=== PATIENT | female | born 1980 | race Caucasian/White ===

== ENCOUNTER → 2018-08-17 13:06 | Outpatient (CLI) | payer MEDICAID, SELFPAY ==
[2018-08-17 13:58] LABS: hCG Titer Quant., Serum < 1 mIU/mL (<9 non-preg)
--- OUTSIDE RECORDS SUMMARY | 2018-11-19 03:57 | XMS RPT_ITS ---
:1980 Author Organization OH[facility] Care Team Providers Name Role Phone VALARIE GRISSOM ([employer]) Attending Unavailable LAMAR SEPULVEDA Referring Unavailable LAMAR SEPULEVDA Attending Unavailable LAMAR SEPULVEDA Referring Unavailable LAMAR SEPULVEDA Referring Unavailable Clare Cruz Attending Unavailable Clare Cruz Referring Unavailable Coco, Lamar Primary Care Unavailable Clare Cruz Attending Unavailable DOCTOR, OUT OF TOWN Referring Unavailable Clare Cruz Attending Unavailable DOCTOR, OUT OF TOWN Referring Unavailable PROBLEMS PROBLEMS DATE TYPE CONDITION / CODE ATTENDING STATUS SOURCE 12/05/2015 Active Hypothyroidism, NA Active [facility] unspecified / Main [place] E03.9(ICD-10) Repository PROCEDURES PROCEDURES No Procedure Records FoundRESULTS RESULTS HABILITATION TRAINING SPECIALIST OFFICE VISIT Observed: 09/21/2018 Status: F Source: C[place]EC[place] REPORT 2:53 PM [facility] REPOSITORY [facility]'s [address] [place] [address] OFFICE VISIT Date of Service: 09/21/18 MR#: [id number] Acct: [id number] Name: LYNNE SEPULVEDA Rep #: [id number] : 1980 Provider: Clare Cruz MD Age/Sex: 37/F Location: [facility] Status: Signed Intake Vital Signs09/21/18 Body Mass Index (BMI) 20.7 09/21/18 Height 5 ft 7.5 in 09/21/18 Weight: 134 lb 09/21/18 Body Mass Index (BMI) 20.7 09/21/18 Blood Pressure 120/70 Intake Visit Reasons: Discuss surgery options Chief Complaint: surgical consult High Speed Printer Operator Required: No Is patient in pain?: No Allergies Sulfa (Sulfonamide Antibiotics) Allergy (Mild, Verified 09/21/18 11:55) unknown Medications levothyroxine 100 mcg tablet 100 mcg PO DAILY 07/07/18 [History Confirmed 09/21/18] norethindrone 1 mg-ethinyl estradiol 20 mcg (21)-iron 75 mg (7) tablet 1 tab PO DAILY #28 tab 09/21/18 [Rx Confirmed 09/21/18] Is last menstrual period known: No Post menopausal: No Patient : No : No PFSH Medical History Hypothyroidism (Acute) Genital HSV (Acute) Surgical History S/P tonsillectomy (Resolved) Family History Mother Mary's disease Social History Smoking Status: Unknown if ever smoked alcohol intake: current alcohol intake frequency: holidays/special occasions only substance use type: does not use caffeine: Yes what type of physical activity do you participate in: none seatbelt use: always do you feel safe at home: Yes additional social history: Single-Self employed HPI Discuss surgery options: Details: LYNNE SEPULVEDA is a 37 year old who presents for discussion of control. she is interested in something for control right now but will be wanting to conceive in the near future. she has had issues with estrogen and changing her thyroid levels, as well as severe mood and bleeding irregularities on progestin only. she hasn't done well on nuvaring in the past either. Pregancy History 2 Elective abortions Hx Para 2 Spontaneous abortions Past Pregnancies Del. DatName GA/WeeksOutcome Route [facility] LocaProviderFOB e ht en ia tn Unknown Valery- 2006 Unknown Jassi-20 11 ROS Const Constitutional: Denies poor appetite, headache(s), fever(s), increased appetite, weight gain, weight loss or fatigue ENT ENT: Denies dry mouth GI GI: Reports as per HPI; denies vomiting, nausea, abdominal pain or constipation : Reports as per HPI; denies difficulty urinating, blood in urine, pelvic pain, urinary frequency, urinary incontinence, urinary hesitancy, urinary urgency, vaginal discharge, vaginal dryness, vaginal odor, vaginal itching, other, painful urination or nipple discharge Skin Skin/Breast: Denies hair loss, change in hair, dry skin, breast pain, breast skin changes, breast lump or nipple discharge Exam Const General: cooperative, healthy appearing, comfortable, no acute distress, well developed Nutritional Appearance: average body habitus Orientation: alert HENMI Head: normal to inspection, normocephalic Ears: hearing grossly normal bilaterally, external ears normal Nose: external nose normal, nares normal Face and sinus: normal facial exam Neck Neck: normal visual inspection, trachea midline, no lymphadenopathy Thyroid: thyroid normal Resp Effort AND Inspection: normal respiratory effort Musc Other: gross motor intact no deficits, full bilateral strength Skin General: no rashes or lesions noted Neuro Motor: muscle tone normal throughout Assessment AND Plan Problems 1. Encounter for surveillance of contraceptive pills Z30.41 2. Side effect of drug T88.7XXA Plan discussed options plan lo loestrin and if persistent side effects recommend nexplanon, iud, or condoms. Medications New: norethindrone-e.estradiol-iron 1 mg-20 mcg (21)/75 mg (7) (Lo1 tab PO DAILY 28 tabs 12RF estrin Fe 09/20 (28-Day)) Coding Level of Care Code Off vis,est,level 4 Diagnoses Encounter for surveillance of contraceptive pills Z30.41 Contraceptive encounter type: surveillance Contraceptive type: pill Side effect of drug T88.7XXA 09/21/18 1453 <Electronically signed by Clare Cruz MD> Date Clare Cruz MD Cosigner Signature: Date (if applicable) CC: HCG TITER QUANT., Collected: 08/17/2018 Status: F Source: [place] SERUM 1:24 PM [facility] REPOSITORY TYPE CODE TESTS RESULT OUT OF RANGE REFERENCE UNITS LAB L700.8000 <9 non-preg mIU/mL Normal HCG < 1 QUANT. Performed By: #### L700.8000 #### [facility] [address] [place], [address] PROGRESS Observed: 08/06/2018 Status: COMPLETED Source: [place] 9:53 AM [facility] [place] REPOSITORY HNO ID: [id number] Author: Valarie Grissom Service: (none) Author Type: Nurse Practitioner Type: Progress Notes Filed: 08/06/2018 10:17 AM Note Text: 37 year old female with c/o URI sx over the last several weeks. This most recent episode started last . Refers that she was sick about 5 weeks ago, as well. In between those episodes, had a period where she was completely knocked out. Refers about a week and a half ago, took plan B. Took the plan B within 24 hours of intercourse. Then started control. Didn't agree, hormonally, with thyroid issues. So was also having headaches and breast tenderness from that. Sore throat: Yes -- from drainage and up high in throat. Runny/stuffy nose: Yes. Postnasal drip: Yes. Throat clearing: Yes. Sinus pain/ pressure: Yes. Teeth pain: No. Headache Yes - -thinks more control/hormones. Body aches Yes -- attributes to thyroid Ear pain: No. But feels like equilibrium is off. Cough: No. Production: n/a. Fever: No. Some chills but relates to hormonal/cycle/thyroid. Hx asthma Yes. Hx pneumonia Yes. Smoker: No. OTC meds tried: tylenol. ACTIVE PROBLEM LIST Generalized Anxiety Disorder Anemia, Antepartum(878.71) Premature Atrial Beats Palpitations Cervicalgia Acquired Hypothyroidism Current Outpatient Prescriptions: SYNTHROID 100 mcg tablet TAKE 1 AND 1/2 TABLETS BY MOUTH ON FRIDAY AND 1 TABLET ALL OTHER DAYS Disp: 32 tablet Rfl: 4 escitalopram oxalate (LEXAPRO) 10 mg tablet Take 1 tablet by mouth once daily. Disp: 30 tablet Rfl: 1 nystatin (MYCOSTATIN) cream Apply 1 application to affected area twice daily. Disp: 45 g Rfl: 0 VENTOLIN HFA 90 mcg/actuation inhaler INHALE 2 PUFFS INSTRUCTED EVERY 4 HOURS NEEDED. Disp: 18 Inhaler Rfl: 0 acetaminophen(TYLENOL 325 MG TAB) as necessary Disp: Rfl: 0 No current facility-administered medications for this visit. OBJECTIVE: BP 110/64 (BP Site: Right Arm, BP Position: Sitting, BP Cuff Size: Regular Adult) Pulse 94 Temp 36.7 ?C (98 ?F) (Right Tympanic) Resp 14 Wt 60.3 kg (133 lb) SpO2 100% BMI 20.52 kg/m? General Appearance: Well appearing, alert, in no acute distress, well-hydrated, well nourished.. Skin: Skin color, texture, turgor normal, no suspicious rashes or lesions. Head: Normocephalic, no masses, lesions, tenderness or abnormalities. Eyes: Anicteric sclera. Pupils are equally round and reactive to light. Extraocular movements are intact. . Ears: External ears normal, canals clear, Normal TMs bilaterally. Nose/Sinuses: Nares normal, septum midline, mucosa normal, no drainage or sinus tenderness. Oropharynx: Lips, mucosa, and tongue normal, teeth and gums normal, oropharynx normal. Neck: Supple, no adenopathy Lungs: lungs clear to auscultation. No wheezing, rhonchi, rales. Heart: RRR without murmur, gallop, or rubs. No ectopy. Neurologic: Gait normal. ASSESSMENT/PLAN: 1. Acute non-recurrent sinusitis, unspecified location - ICD9: 461.9, ICD10: J01.90 (primary diagnosis) - Will begin treatment with Amoxicillin for 10 days - The patient should also be given OTC decongestants prn and warm salt water gargles, throat lozenges and/or OTC throat spray as needed for the first 5-7 days of treatment. - Supportive care with plenty of fluids, rest, and analgesia prn. - AMOXICILLIN 875 MG TABLET 2. Unprotected sexual intercourse - ICD9: V69.2, ICD10: Z72.51 Took plan B within 24 hours of unprotected intercourse. Encouraged to follow-up with a test in a week. Discussed treatment plan and patient voices understanding. Patient's questions answered appropriately. Medications and potential side effects were discussed and patient voices understanding. Return to the office as scheduled or as needed for worsening/no improvement. Valarie Grissom APRN.MAKI RODRÍGUEZOV Observed: 08/06/2018 Status: COMPLETED Source: [place] 9:40 AM [facility] REPOSITORY Office Visit (FAMPWS) LYNNE SEPULVEDA ([id number]) 1980 F Date Time Provider Department 08/06/18 9:40 AM VALARIE GRISSOM ([facility]) FAMPWS During your visit today, we recorded the following information about you: Temperature Pulse Respiration Blood pressure 98 degrees 94/minute 14/minute 110/64 Weight 60.3 kg Valarie Grissom APRN.MAKI 08/06/2018 10:17 AM Signed 37 year old female with c/o URI sx over the last several weeks. This most recent episode started last . Refers that she was sick about 5 weeks ago, as well. In between those episodes, had a period where she was completely knocked out. Refers about a week and a half ago, took plan B. Took the plan B within 24 hours of intercourse. Then started control. Didn't agree, hormonally, with thyroid issues. So was also having headaches and breast tenderness from that. Sore throat: Yes -- from drainage and up high in throat. Runny/stuffy nose: Yes. Postnasal drip: Yes. Throat clearing: Yes. Sinus pain/ pressure: Yes. Teeth pain: No. Headache Yes - -thinks more control/hormones. Body aches Yes -- attributes to thyroid Ear pain: No. But feels like equilibrium is off. Cough: No. Production: n/a. Fever: No. Some chills but relates to hormonal/cycle/thyroid. Hx asthma Yes. Hx pneumonia Yes. Smoker: No. OTC meds tried: tylenol. ACTIVE PROBLEM LIST Generalized Anxiety Disorder Anemia, Antepartum(588.) Premature Atrial Beats Palpitations Cervicalgia Acquired Hypothyroidism Current Outpatient Prescriptions: SYNTHROID 100 mcg tablet TAKE 1 AND 1/2 TABLETS BY MOUTH ON FRIDAY AND 1 TABLET ALL OTHER DAYS Disp: 32 tablet Rfl: 4 escitalopram oxalate (LEXAPRO) 10 mg tablet Take 1 tablet by mouth once daily. Disp: 30 tablet Rfl: 1 nystatin (MYCOSTATIN) cream Apply 1 application to affected area twice daily. Disp: 45 g Rfl: 0 VENTOLIN HFA 90 mcg/actuation inhaler INHALE 2 PUFFS INSTRUCTED EVERY 4 HOURS NEEDED. Disp: 18 Inhaler Rfl: 0 acetaminophen(TYLENOL 325 MG TAB) as necessary Disp: Rfl: 0 No current facility-administered medications for this visit. OBJECTIVE: BP 110/64 (BP Site: Right Arm, BP Position: Sitting, BP Cuff Size: Regular Adult) Pulse 94 Temp 36.7 ?C (98 ?F) (Right Tympanic) Resp 14 Wt 60.3 kg (133 lb) SpO2 100% BMI 20.52 kg/m? General Appearance: Well appearing, alert, in no acute distress, well-hydrated, well nourished.. Skin: Skin color, texture, turgor normal, no suspicious rashes or lesions. Head: Normocephalic, no masses, lesions, tenderness or abnormalities. Eyes: Anicteric sclera. Pupils are equally round and reactive to light. Extraocular movements are intact. . Ears: External ears normal, canals clear, Normal TMs bilaterally. Nose/Sinuses: Nares normal, septum midline, mucosa normal, no drainage or sinus tenderness. Oropharynx: Lips, mucosa, and tongue normal, teeth and gums normal, oropharynx normal. Neck: Supple, no adenopathy Lungs: lungs clear to auscultation. No wheezing, rhonchi, rales. Heart: RRR without murmur, gallop, or rubs. No ectopy. Neurologic: Gait normal. ASSESSMENT/PLAN: 1. Acute non-recurrent sinusitis, unspecified location - ICD9: 461.9, ICD10: J01.90 (primary diagnosis) - Will begin treatment with Amoxicillin for 10 days - The patient should also be given OTC decongestants prn and warm salt water gargles, throat lozenges and/or OTC throat spray as needed for the first 5-7 days of treatment. - Supportive care with plenty of fluids, rest, and analgesia prn. - AMOXICILLIN 875 MG TABLET 2. Unprotected sexual intercourse - ICD9: V69.2, ICD10: Z72.51 Took plan B within 24 hours of unprotected intercourse. Encouraged to follow-up with a test in a week. Discussed treatment plan and patient voices understanding. Patient's questions answered appropriately. Medications and potential side effects were discussed and patient voices understanding. Return to the office as scheduled or as needed for worsening/no improvement. Valarie Grissom APRN.MAKI Grissom APRN.CNP 08/06/2018 10:10 AM Signed Get plenty of rest. Force fluids daily with water and juices. Nasal saline spray may help to keep nose open and moist: 2- 3 squirts each side every few hours. This also help to rinse out virus and bacteria causing infection. Cool mist humidifier in room during sleep. May use OTC Tylenol or Ibuprofen as direct for discomfort. For sore throat, warm salt water gargles, Chlorseptic spray, lozenges or other OTC sore throat remedies may help. Decongestants such as plain Sudafed or with expectorant such as Mucinex D may help with nasal stuffiness or facial and sinus pressure. Generics are fine. These are over the counter but require an adult signature. Oxymetolazine nasal decongestants (Afrin, Dristan, Hans's) may also help (in place of oral decongestants) but should not be used longer than 48-72 hours due to potential rebound congestion. If cough keeps you awake at night, try OTC remedies first, such as Nyquil, Delsym, Hans's 44 or Mucinex DM. If this doesn't help you sleep, call the office for a prescription. Be careful if you are combining cough and cold medications that you aren't doubling the medicines. If you aren't sure: ask the pharmacist for help. Cough or sneeze into your sleeve to prevent spread of infected secretions. Wash your hands frequently. Try not to cough or sneeze on surfaces others might touch. If symptoms fail to improve in 5-7 days, fever > 100.5F, general worsening, or other concerning symptoms, return to [facility] or Lamar Sepulveda MD. Referring Provider: SELF [200] Allergies As of Date: 08/06/2018 Noted Allergy Reaction ALEVE (NAPROXEN SODIUM) 06/09/2013 14 - Other: See Comments Comments: Makes brain feel off kilter CATS 04/11/2005 Environmental [Other] 05/03/2008 INFLUENZA VIRUS VACCINES 07/09/2017 12 - Shortness of Breath SULFA (SULFONAMIDE ANTIBIOTICS) 04/11/2005 5 - Intolerance Comments: CHILD Date Reviewed: 08/06/2018 Reviewed by: [facility] Fellow - Fully Assessed Reason for Visit: Head Congestion [234] Cmt: X 1 week Primary Visit Diagnosis:Acute non-recurrent sinusitis, unspecified location [J01.90] Other Visit Diagnosis:Unprotected sexual intercourse [Z72.51] Order(s):amoxicillin (AMOXIL) 875 mg tabletTake 1 tablet by mouth twice daily for 10 days.Disp: 20 tabletRfl: 0 Prescriptions as of 08/06/2018 Sig: SYNTHROID 100 MCG TABLET TAKE 1 AND 1/2 TABLETS BY MARIA TERESA* ESCITALOPRAM 10 MG TABLET Take 1 tablet by mouth once d* NYSTATIN 100,000 UNIT/GRAM TO* Apply 1 application to affect* VENTOLIN HFA 90 MCG/ACTUATION* INHALE 2 PUFFS INSTRUCTED * TYLENOL 325 MG TABLET as necessary AMOXICILLIN 875 MG TABLET Take 1 tablet by mouth twice * Problem List As Of Date 08/06/2018 Noted Resolved Enlargement of lymph nodes [R59.9] INVALID FOR*12/23/2013 Hypothyroidism [E03.9] INVALID FOR*12/05/2015 More... Loss of weight [R63.4] INVALID FOR*12/23/2013 Other malaise and fatigue [R53.81, R53.83] INVALID FOR*12/23/2013 Dizziness [R42] INVALID FOR*12/23/2013 Neck pain [M54.2] INVALID FOR*12/23/2013 Generalized Anxiety Disorder [F41.1] INVALID FOR* Anemia, antepartum [O99.019] INVALID FOR* Supervision of other normal [Z34.80] INVALID FOR*10/09/2012 Premature atrial beats [I49.1] INVALID FOR* Palpitations [R00.2] INVALID FOR* Cervicalgia [M54.2] INVALID FOR* Acquired hypothyroidism [E03.9] INVALID FOR* Other instructions from your clinician: Get plenty of rest. Force fluids daily with water and juices. Nasal saline spray may help to keep nose open and moist: 2-3 squirts each side every few hours. This also help to rinse out virus and bacteria causing infection. Cool mist humidifier in room during sleep. May use OTC Tylenol or Ibuprofen as direct for discomfort. For sore throat, warm salt water gargles, Chlorseptic spray, lozenges or other OTC sore throat remedies may help. Decongestants such as plain Sudafed or with expectorant such as Mucinex D may help with nasal stuffiness or facial and sinus pressure. Generics are fine. These are over the counter but require an adult signature. Oxymetolazine nasal decongestants (Afrin, Dristan, Hans's) may also help (in place of oral decongestants) but should not be used longer than 48-72 hours due to potential rebound congestion. If cough keeps you awake at night, try OTC remedies first, such as Nyquil, Delsym, Hans's 44 or Mucinex DM. If this doesn't help you sleep, call the office for a prescription. Be careful if you are combining cough and cold medications that you aren't doubling the medicines. If you aren't sure: ask the pharmacist for help. Cough or sneeze into your sleeve to prevent spread of infected secretions. Wash your hands frequently. Try not to cough or sneeze on surfaces others might touch. If symptoms fail to improve in 5-7 days, fever > 100.5F, general worsening, or other concerning symptoms, return to [facility] or Lamar Sepulveda MD. Prescriptions ordered this encounter Disp Refills Start End AMOXICILLIN 875 MG TABLET 20 t* 0 08/06/2018 08/16/2018 Route: ORAL Sig: Take 1 tablet by mouth twice daily for 10 days. Encounter Status:Closed by VALARIE GRISSOM CNP on 08/06/18 HABILITATION TRAINING SPECIALIST OFFICE VISIT Observed: 07/07/2018 Status: F Source: [place] REPORT 1:13 PM [facility]'s [address] [place] [address] OFFICE VISIT Date of Service: 07/07/18 MR#: [id number] Acct: [id number] Name: LYNNE SEPULVEDA Rep #: [id number] : 1980 Provider: Clare Cruz MD Age/Sex: 37/F Location: [facility] Status: Signed Intake Vital Signs07/07/18 Height 5 ft 7.5 in 07/07/18 Weight: 134 lb 07/07/18 Body Mass Index (BMI) 20.7 07/07/18 Blood Pressure 112/70 Intake Visit Reasons: IRREGULAR PERIODS/EMOTIONAL High Speed Printer Operator Required: No Is patient in pain?: No Allergies Sulfa (Sulfonamide Antibiotics) Allergy (Mild, Verified 07/07/18 10:31) unknown Medications levothyroxine 100 mcg tablet 100 mcg PO DAILY 07/07/18 [History Confirmed 07/07/18] Is last menstrual period known: Yes Last Menstral Period: 06/22/18 Post menopausal: No Patient : No : No [facility] Medical History Hypothyroidism (Acute) Genital HSV (Acute) Surgical History S/P tonsillectomy (Resolved) Family History Mother Mary's disease Social History Smoking Status: Unknown if ever smoked alcohol intake: current alcohol intake frequency: holidays/special occasions only substance use type: does not use caffeine: Yes what type of physical activity do you participate in: none seatbelt use: always do you feel safe at home: Yes additional social history: Single-Self employed HPI IRREGULAR PERIODS/EMOTIONAL: Details: LYNNE SEPULVEDA is a 37 year old who presents for discussion about HSV. she is wanting to be sexually active more and wants to discuss std risks and prevention. she is wanting tested. Female Reproductive History Last Menstral Period: 06/22/18 Cycle Length: 21-35 Control Method: condoms Questions: Metorrhagia: No, Sexually active: Yes, Dyspareunia: No, PCB: No Pregancy History 2 Elective abortions Hx Para 2 Spontaneous abortions Past Pregnancies Del. DatName GA/WeeksOutcome [facility] LocaProviderFOB e ht en ia tn Unknown Valery- 2005 Unknown Jassi-20 11 ROS Const Constitutional: Denies poor appetite, headache(s), fever(s), increased appetite, weight gain, weight loss or fatigue Cardio Card: Denies chest pain Resp Resp: Denies dyspnea or cough GI GI: Reports as per HPI; denies vomiting, nausea, abdominal pain or constipation : Reports as per HPI; denies urinary urgency, vaginal discharge, urinary frequency, vaginal itching, vaginal odor, vaginal dryness, urinary incontinence, urinary hesitancy, difficulty urinating, painful urination or nipple discharge Skin Skin/Breast: Denies breast lump, breast pain, breast skin changes, nipple discharge or change in hair Exam Const General: cooperative, healthy appearing, comfortable, no acute distress, well developed Nutritional Appearance: average body habitus Orientation: alert HENMT Head: normal to inspection, normocephalic Neck Neck: normal visual inspection, trachea midline Thyroid: thyroid normal Resp Effort AND Inspection: normal respiratory effort GI Inspection: normal to inspection, non-distended Palpation: soft, no hepatosplenomegaly General: bladder normal to palpation External Female Exam: normal external appearance, normal appearance of the urethra Urethra: normal appearance of the urethra, normal palpation, no discharge Speculum Exam - Vagina: normal appearance of the vagina, normal vaginal discharge Speculum Exam - Cervix: normal appearance of the cervix, nontender Bimanual Exam- Vagina AND Uterus: bladder normal to palpation, No cervical tenderness, normal bimanual exam, uterine size normal, uterine shape normal, uterine mobility normal, uterine consistency normal, normal cervical palpation, uterus non-tender Bimanual Exam- Adnexa, other: normal adnexae, adnexae mobile, no adnexal masses, pelvic support normal Pelvic Support: normal Skin General: no rashes or lesions noted Assessment AND Plan Problems 1. Screen for STD (sexually transmitted disease) Z11.3 2. Breast lesion N64.9 3. General counselling and advice on contraception Z30. Plan discussed options for control. plan on progestin only pill due to side effects of estrogen on thyroid in the past Coding Level of Care Code Off vis,est,level 3 Diagnoses Screen for STD (sexually transmitted disease) Z11.3 Breast lesion N64.9 General counselling and advice on contraception Z30.07/07/18 1313 <Electronically signed by Clare Cruz MD> Date Clare Cruz MD Cosigner Signature: Date (if applicable) CC: TSH Collected: 06/18/2018 Status: F Source: [place] 4:42 PM [facility] REPOSITORY TYPE CODE TESTS RESULT OUT OF RANGE REFERENCE UNITS LAB TSH 0.400-5.500 uU/mL TSH 2.320 Result Comment: If the patient is , TSH reference range varies by gestational period: First Trimester 0.100-2.500 uU/mL Second Trimester 0.200-3.000 uU/mL Third Trimester 0.300-3.000 uU/mL References: 1. Villatoro L, Terrence M, José EK, et al. Management of Thyroid Dysfunction during and : An Endocrine Society Clinical Practice Guideline. J Clin Endocrinol Metab, 2012:97:2874-5869. 2. Rickey MILLER. Overview of thyroid disease in . UpToDate. 2016. Accessed on February 16, 2016. Performed By: #### TSH, FT4 #### [facility] [address] [address] FREE T4 Collected: 06/18/2018 Status: F Source: [place] 4:42 PM [facility] REPOSITORY TYPE CODE TESTS RESULT OUT OF RANGE REFERENCE UNITS LAB FT4 0.9-1.7 ng/dL Free T4 1.4 Performed By: #### TSH, FT4 #### [facility] [address] [address] PROGRESS Observed: 03/20/2018 Status: COMPLETED Source: [place] 9:50 AM [facility] REPOSITORY O ID: [id number] Author: Lamar Sepulveda Service: (none) Author Type: Physician Type: Progress Notes Filed: 03/20/2018 10:09 AM Note Text: Patient presents with: Derm Problem HPI: Patient presents today for office visit for follow up. Nursing Notes: Fely Evans LPN 03/20/2018 9:13 AM Signed Wants to discuss pain that she gets in temples jolting pain. Comes with a dizziness feeling. When happened in the past years ago had MRI and then had to see massage therapy. Wonders if related to thyroid issues? Derm problem. Area inner aspect right elbow. Had area not healing changes. Seems to be effected by the sun. Area sometimes is raised. Doesn't itch. Uses ATB and that seems to help. Gets a spot on her olecranon fossa of her right elbow. Worse when in the sun. Is somewhat better today. Comes and goes. No fever or chills. No red streaks. Has been there for a few weeks. ? Central clearing. Headaches are similar to when she had headaches evaluated in 2009. Gets occasionally lightheaded. Would get shooting pains in the side of her head. She has significant tmj. No vision changes. No speech changes. No focal numbness or weakness. No new neck pain. No head injury. Not the worst headache she has had. No thunderclap. Wants us to recheck thyroid and manage. She adjusted on her own. MEDICATIONS: Current Outpatient Prescriptions: SYNTHROID 100 mcg tablet Take 1.5 pill on friday, all other days take 1 pill per day, total 7.5 pills per week (Patient taking differently: Take 100 mcg by mouth once daily. ) escitalopram oxalate (LEXAPRO) 10 mg tablet Take 1 tablet by mouth once daily. (Patient not taking: Reported on 03/20/2018 ) VENTOLIN HFA 90 mcg/actuation inhaler INHALE 2 PUFFS INSTRUCTED EVERY 4 HOURS NEEDED. acetaminophen(TYLENOL 325 MG TAB) as necessary No current facility-administered medications for this visit. ALLERGIES: ALLERGIES Allergen Reactions - Aleve [Naproxen Sod* Other: See Comments Makes brain feel off kilter - Cats - Environmental [Othe* - Influenza Virus Vac* Shortness of Breath - Sulfa (Sulfonamide * Intolerance CHILD PAST MEDICAL HISTORY Diagnosis Date - Closed fracture of unspecified part of humerus LT HAND - Hypothyroid - Injury, other and unspecified, unspecified site Trauma, unspecified - Unspecified closed fracture of ankle LT FOOT -2ND GRADE PAST SURGICAL HISTORY Procedure Laterality Date - REMOVAL OF TONSILS,<14 Y/O 1988 Tonsillectomy - SKIN BX, 1 LESION 1995 Skin biopsy-MOLE REMOVE ON R THIGH FAMILY HISTORY Problem Relation Age of Onset - Emphysema Maternal Grandmother - vitamin k deficiency [Other] [OTHER] Father Social History Marital status: Single Spouse name: Years of education: 12 Number of children: 1 Occupational History Occupation Employer Comment [employer]* SELF EMPLOYED Social History Main Topics Smoking status: Former Smoker Packs/day: 0.00 Years: 2.00 Quit date: 02/28/2005 Smokeless tobacco: Never Used Alcohol use: Yes Comment: Rarely Drug use: No Sexual activity: Yes Partners with: Male control/protection: Condom Reviewed current medications, allergies, past medical history, surgical history, family history and social history today. REVIEW OF SYSTEMS All other reviewed and negative other than HPI. HEALTH MAINTENANCE: Reviewed health maintenance issues today and recommended the following in detail. HPV EVERY 5 YEARS due on 2012 PAP EVERY 5 YEARS due on 10/09/2017 VITALS: BP 110/72 Pulse 60 Resp 16 Last 4 Encounter Wt Readings: Date: Wt: 09/08/2017 62.6 kg (138 lb) 07/01/2017 62.1 kg (137 lb) 03/08/2017 61.7 kg (136 lb) 01/16/2017 59.4 kg (131 lb) PHYSICAL EXAMINATION: General appearance: Well appearing, alert, in no acute distress, well-hydrated, well nourished. Skin: mild red rash in olecranon fossa. Some central clearing. Head: Normocephalic, no masses, lesions, tenderness or abnormalities Eyes: Anicteric sclera. Pupils are equally round and reactive to light. Extraocular movements are intact. Ears: External ears normal, canals clear Oropharynx: Lips, mucosa, and tongue normal, teeth and gums normal, oropharynx normal and some crepitus over tmj joint Lungs: Lungs clear to auscultation. No wheezing, rhonchi, rales Heart: RRR without murmur, gallop, or rubs. No ectopy Abdomen: Normal abdominal exam, Abdomen soft, non-tender. Bowel sounds normal. No masses, organomegaly Extremities: No deformities, edema, skin discoloration, clubbing or cyanosis. Good capillary refill. ASSESSMENT/PLAN: 1. Dermatitis - ICD9: 692.9, ICD10: L30.9 (primary diagnosis) - discussed skin care of rash - follow up if symptoms persist or worsen. - CLOTRIMAZOLE-BETAMETHASONE 1 %-0.05 % LOTION 2. Acquired hypothyroidism - ICD9: 244.9, ICD10: E03.9 - Instructed patient on importance of taking on an empty stomach either first thing in the morning or at bedtime. - TSH BLD - SYNTHROID 100 MCG TABLET 3. TMJ dysfunction - ICD9: 524.60, ICD10: M26.609 - see dentist 4. Headache, unspecified headache type - ICD9: 784.0, ICD10: R51 - as above. Call if worsens 5. Anxiety. Discussed retrying lexapro. Lamar Sepulveda MD - call with update in a month CNOV Observed: 03/20/2018 Status: COMPLETED Source: [place] 9:00 AM [facility] REPOSITORY Office Visit (FAMPWS) LYNNE SEPULVEDA ([id number]) 1980 F Date Time Provider Department 03/20/18 9:00 AM [facility] During your visit today, we recorded the following information about you: Pulse Respiration Blood pressure 60/minute 16/minute 110/72 Fely Nathan MCCOY 03/20/2018 9:13 AM Signed Wants to discuss pain that she gets in temples jolting pain. Comes with a dizziness feeling. When happened in the past years ago had MRI and then had to see massage therapy. Wonders if related to thyroid issues? Derm problem. Area inner aspect right elbow. Had area not healing changes. Seems to be effected by the sun. Area sometimes is raised. Doesn't itch. Uses ATB and that seems to help. Lamar Sepulveda MD 03/20/2018 10:09 AM Signed Patient presents with: Derm Problem HPI: Patient presents today for office visit for follow up. Nursing Notes: Fely Patelleonidjaya DARIUS 03/20/2018 9:13 AM Signed Wants to discuss pain that she gets in temples jolting pain. Comes with a dizziness feeling. When happened in the past years ago had MRI and then had to see massage therapy. Wonders if related to thyroid issues? Derm problem. Area inner aspect right elbow. Had area not healing changes. Seems to be effected by the sun. Area sometimes is raised. Doesn't itch. Uses ATB and that seems to help. Gets a spot on her olecranon fossa of her right elbow. Worse when in the sun. Is somewhat better today. Comes and goes. No fever or chills. No red streaks. Has been there for a few weeks. ? Central clearing. Headaches are similar to when she had headaches evaluated in 2009. Gets occasionally lightheaded. Would get shooting pains in the side of her head. She has significant tmj. No vision changes. No speech changes. No focal numbness or weakness. No new neck pain. No head injury. Not the worst headache she has had. No thunderclap. Wants us to recheck thyroid and manage. She adjusted on her own. MEDICATIONS: Current Outpatient Prescriptions: SYNTHROID 100 mcg tablet Take 1.5 pill on friday, all other days take 1 pill per day, total 7.5 pills per week (Patient taking differently: Take 100 mcg by mouth once daily. ) escitalopram oxalate (LEXAPRO) 10 mg tablet Take 1 tablet by mouth once daily. (Patient not taking: Reported on 03/20/2018 ) VENTOLIN HFA 90 mcg/actuation inhaler INHALE 2 PUFFS INSTRUCTED EVERY 4 HOURS NEEDED. acetaminophen(TYLENOL 325 MG TAB) as necessary No current facility-administered medications for this visit. ALLERGIES: ALLERGIES Allergen Reactions - Aleve [Naproxen Sod* Other: See Comments Makes brain feel off kilter - Cats - Environmental [Othe* - Influenza Virus Vac* Shortness of Breath - Sulfa (Sulfonamide * Intolerance CHILD PAST MEDICAL HISTORY Diagnosis Date - Closed fracture of unspecified part of humerus LT HAND - Hypothyroid - Injury, other and unspecified, unspecified site Trauma, unspecified - Unspecified closed fracture of ankle LT FOOT -2ND GRADE PAST SURGICAL HISTORY Procedure Laterality Date - REMOVAL OF TONSILS,<14 Y/O 1988 Tonsillectomy - SKIN BX, 1 LESION 1995 Skin biopsy-MOLE REMOVE ON R THIGH FAMILY HISTORY Problem Relation Age of Onset - Emphysema Maternal Grandmother - vitamin k deficiency [Other] [OTHER] Father Social History Marital status: Single Spouse name: Years of education: 12 Number of children: 1 Occupational History Occupation Employer Comment [employer]* SELF EMPLOYED Social History Main Topics Smoking status: Former Smoker Packs/day: 0.00 Years: 2.00 Quit date: 02/28/2005 Smokeless tobacco: Never Used Alcohol use: Yes Comment: Rarely Drug use: No Sexual activity: Yes Partners with: Male control/protection: Condom Reviewed current medications, allergies, past medical history, surgical history, family history and social history today. REVIEW OF SYSTEMS All other reviewed and negative other than HPI. HEALTH MAINTENANCE: Reviewed health maintenance issues today and recommended the following in detail. HPV EVERY 5 YEARS due on 2012 PAP EVERY 5 YEARS due on 10/09/2017 VITALS: BP 110/72 Pulse 60 Resp 16 Last 4 Encounter Wt Readings: Date: Wt: 09/08/2017 62.6 kg (138 lb) 07/01/2017 62.1 kg (137 lb) 03/08/2017 61.7 kg (136 lb) 01/16/2017 59.4 kg (131 lb) PHYSICAL EXAMINATION: General appearance: Well appearing, alert, in no acute distress, well-hydrated, well nourished. Skin: mild red rash in olecranon fossa. Some central clearing. Head: Normocephalic, no masses, lesions, tenderness or abnormalities Eyes: Anicteric sclera. Pupils are equally round and reactive to light. Extraocular movements are intact. Ears: External ears normal, canals clear Oropharynx: Lips, mucosa, and tongue normal, teeth and gums normal, oropharynx normal and some crepitus over tmj joint Lungs: Lungs clear to auscultation. No wheezing, rhonchi, rales Heart: RRR without murmur, gallop, or rubs. No ectopy Abdomen: Normal abdominal exam, Abdomen soft, non-tender. Bowel sounds normal. No masses, organomegaly Extremities: No deformities, edema, skin discoloration, clubbing or cyanosis. Good capillary refill. ASSESSMENT/PLAN: 1. Dermatitis - ICD9: 692.9, ICD10: L30.9 (primary diagnosis) - discussed skin care of rash - follow up if symptoms persist or worsen. - CLOTRIMAZOLE-BETAMETHASONE 1 %-0.05 % LOTION 2. Acquired hypothyroidism - ICD9: 244.9, ICD10: E03.9 - Instructed patient on importance of taking on an empty stomach either first thing in the morning or at bedtime. - TSH BLD - SYNTHROID 100 MCG TABLET 3. TMJ dysfunction - ICD9: 524.60, ICD10: M26.609 - see dentist 4. Headache, unspecified headache type - ICD9: 784.0, ICD10: R51 - as above. Call if worsens 5. Anxiety. Discussed retrying lexapro. Lamar Sepulveda MD - call with update in a month Referring Provider: SELF [[id number]] Allergies As of Date: 03/20/2018 Noted Allergy Reaction ALEVE (NAPROXEN SODIUM) 06/09/2013 14 - Other: See Comments Comments: Makes brain feel off kilter CATS 04/11/2005 Environmental [Other] 05/03/2008 INFLUENZA VIRUS VACCINES 07/09/2017 12 - Shortness of Breath SULFA (SULFONAMIDE ANTIBIOTICS) 04/11/2005 5 - Intolerance Comments: CHILD Date Reviewed: 09/08/2017 Reviewed by: Anahy Orozco LPN - Fully Assessed Reason for Visit: Derm Problem [33] Primary Visit Diagnosis:Dermatitis [L30.9] Other Visit Diagnoses:Acquired hypothyroidism [E03.9] TMJ dysfunction [M26.609] Headache, unspecified headache type [R51] Anxiety [F41.9] Order(s):clotrimazole-betamethasone (LOTRISONE) lotionApply 1 application to affected area twice daily.Disp: 30 mLRfl: 1 TSH BLD [[facility]] Order #: [id number] FUTURE SYNTHROID 100 mcg tabletTake 1 tablet by mouth once daily.Disp: Rfl: escitalopram oxalate (LEXAPRO) 10 mg tabletTake 1 tablet by mouth once daily.Disp: 30 tabletRfl: 1 Prescriptions as of 03/20/2018 Sig: SYNTHROID 100 MCG TABLET Take 1 tablet by mouth once d* CLOTRIMAZOLE-BETAMETHASONE 1 * Apply 1 application to affect* ESCITALOPRAM 10 MG TABLET Take 1 tablet by mouth once d* VENTOLIN HFA 90 MCG/ACTUATION* INHALE 2 PUFFS INSTRUCTED * TYLENOL 325 MG TABLET as necessary Problem List As Of Date 03/20/2018 Noted Resolved Enlargement of lymph nodes [R59.9] INVALID FOR*12/23/2013 Hypothyroidism [E03.9] INVALID FOR*12/05/2015 More... Loss of weight [R63.4] INVALID FOR*12/23/2013 Other malaise and fatigue [R53.81, R53.83] INVALID FOR*12/23/2013 Dizziness [R42] INVALID FOR*12/23/2013 Neck pain [M54.2] INVALID FOR*12/23/2013 Generalized Anxiety Disorder [F41.1] INVALID FOR* Anemia, antepartum [O99.019] INVALID FOR* Supervision of other normal [Z34.80] INVALID FOR*10/09/2012 Premature atrial beats [I49.1] INVALID FOR* Palpitations [R00.2] INVALID FOR* Cervicalgia [M54.2] INVALID FOR* Acquired hypothyroidism [E03.9] INVALID FOR* Visit Notes: >> Fely Evans STEM TEACHER FriMar 20, 2018 8:54 AM Status: Signed Wants to discuss pain that she gets in temples jolting pain. Comes with a dizziness feeling. When happened in the past years ago had MRI and then had to see massage therapy. Wonders if related to thyroid issues? Derm problem. Area inner aspect right elbow. Had area not healing changes. Seems to be effected by the sun. Area sometimes is raised. Doesn't itch. Uses ATB and that seems to help. Prescriptions ordered this encounter Disp Refills Start End CLOTRIMAZOLE-BETAMETHASONE 1 %-0.05 * 30 mL 1 03/20/2018 Route: TOPICAL Sig: Apply 1 application to affected area twice daily. SYNTHROID 100 MCG TABLET 03/20/2018 Class: Med Update Route: ORAL Sig: Take 1 tablet by mouth once daily. ESCITALOPRAM 10 MG TABLET 30 t* 1 03/20/2018 Route: ORAL Sig: Take 1 tablet by mouth once daily. Medications Discontinued During This Encounter SYNTHROID 100 mcg tablet 100 * 3 09/03/2017 03/20/2018 Sig: Take 1.5 pill on friday, all other days take 1 pill per day, total 7.5 pills per week Patient taking differently: Take 100 mcg by mouth once daily. Disc: Reason for discontinue is not on file. escitalopram oxalate (LEXAPRO) 10 mg* 30 t* 1 07/16/2017 03/20/2018 Route: ORAL Sig: Take 1 tablet by mouth once daily. Patient not taking: Reported on 03/20/2018 Disc: Reason for discontinue is not on file. Disposition: Return in about 1 year (around 03/20/2019). Follow-up and Disposition History Recorded Encounter Status:Closed by LAMAR SEPULVEDA MD on 03/20/18 CNPN Observed: 03/20/2018 Status: COMPLETED Source: [place] 12:00 AM [facility] REPOSITORY [facility] LYNNE SEPULVEDA ([id number]) 1980 F Date Time Provider Department 03/20/18 LAMAR SEPULVEDA [facility] During your visit today, we recorded the following information about you: Sheba Malave LPN 03/20/2018 11:45 AM Signed Patient's insurance will not cover the Lotrisone cream. It will be over $160. Asking if there is something cheaper available? Please review and advise. aLmar Sepulveda MD 03/20/2018 1:37 PM Signed New rx sent Mirta Lucero Ma 03/20/2018 2:42 PM Signed Left detailed message for patient. Mirta Malave LPN 03/20/2018 3:05 PM Signed Patient notified of the same and verbalizes understanding. Allergies As of Date: 03/20/2018 Noted Allergy Reaction ALEVE (NAPROXEN SODIUM) 06/09/2013 14 - Other: See Comments Comments: Makes brain feel off kilter CATS 04/11/2005 Environmental [Other] 05/03/2008 INFLUENZA VIRUS VACCINES 07/09/2017 12 - Shortness of Breath SULFA (SULFONAMIDE ANTIBIOTICS) 04/11/2005 5 - Intolerance Comments: CHILD Date Reviewed: 09/08/2017 Reviewed by: Anahy Orozco LPN - Fully Assessed Reason for Visit: Medication Problem [65] Order(s):nystatin (MYCOSTATIN) creamApply 1 application to affected area twice daily.Disp: 45 gRfl: 0 Prescriptions as of 03/20/2018 Sig: SYNTHROID 100 MCG TABLET Take 1 tablet by mouth once d* ESCITALOPRAM 10 MG TABLET Take 1 tablet by mouth once d* NYSTATIN 100,000 UNIT/GRAM TO* Apply 1 application to affect* VENTOLIN HFA 90 MCG/ACTUATION* INHALE 2 PUFFS INSTRUCTED * TYLENOL 325 MG TABLET as necessary Problem List As Of Date 03/20/2018 Noted Resolved Enlargement of lymph nodes [R59.9] INVALID FOR*12/23/2013 Hypothyroidism [E03.9] INVALID FOR*12/05/2015 More... Loss of weight [R63.4] INVALID FOR*12/23/2013 Other malaise and fatigue [R53.81, R53.83] INVALID FOR*12/23/2013 Dizziness [R42] INVALID FOR*12/23/2013 Neck pain [M54.2] INVALID FOR*12/23/2013 Generalized Anxiety Disorder [F41.1] INVALID FOR* Anemia, antepartum [O99.019] INVALID FOR* Supervision of other normal [Z34.80] INVALID FOR*10/09/2012 Premature atrial beats [I49.1] INVALID FOR* Palpitations [R00.2] INVALID FOR* Cervicalgia [M54.2] INVALID FOR* Acquired hypothyroidism [E03.9] INVALID FOR* Prescriptions ordered this encounter Disp Refills Start End NYSTATIN 100,000 UNIT/GRAM TOPICAL C* 45 g 0 03/20/2018 Route: TOPICAL Sig: Apply 1 application to affected area twice daily. Medications Discontinued During This Encounter clotrimazole-betamethasone (LOTRISON* 30 mL 1 03/20/2018 03/20/2018 Route: TOPICAL Sig: Apply 1 application to affected area twice daily. Disc: Reason for discontinue is not on file. Encounter Status:Closed by MIRTA LUCERO MA on 03/20/18 TSH Collected: 02/27/2018 Status: F Source: [place] 1:12 PM [facility] RE[facility] TYPE CODE TESTS RESULT OUT OF RANGE REFERENCE UNITS LAB TSH 0.400-5.500 uU/mL TSH 4.660 Result Comment: If the patient is , TSH reference range varies by gestational period: First Trimester 0.100-2.500 uU/mL Second Trimester 0.200-3.000 uU/mL Third Trimester 0.300-3.000 uU/mL References: 1. Villatoro L, Terrence M, José EK, et al. Management of Thyroid Dysfunction during and : An Endocrine Society Clinical Practice Guideline. J Clin Endocrinol Metab, 2012:97:7624-5672. 2. Rickey MILLER. Overview of thyroid disease in . UpToDa. 2015. Accessed on February 16, 2016. Performed By: #### TSH #### [facility] [address] [place] [address], [place] [address] TSH Collected: 01/06/2018 Status: F Source: [place] 9:40 AM [facility] REPOSITORY TYPE CODE TESTS RESULT OUT OF RANGE REFERENCE UNITS LAB TSH 0.400-5.500 uU/mL TSH 1.620 Result Comment: If the patient is , TSH reference range varies by gestational period: First Trimester 0.100-2.500 uU/mL Second Trimester 0.200-3.000 uU/mL Third Trimester 0.300-3.000 uU/mL References: 1. West, Terrence M, José EK, et al. Management of Thyroid Dysfunction during and : An Endocrine Society Clinical Practice Guideline. J Clin Endocrinol Metab, 2012:97:9118-0001. 2. Rickey MILLER. Overview of thyroid disease in . UpToDate. 2015. Accessed on February 16, 2016. Performed By: #### TSH #### [facility] [address] [id number] ALLERGIES ALLERGIES DATE TYPE / CODE NAME / CODE REACTION SEVERITY SOURCE Drug Sulfa Unknown [place] 9 Allergy/261123268( (Sulfonamide Community SNOMED CT) Antibiotics)/F Hospital [id number](RXNO Repository ) Drug INFLUENZA SHORTNESS OF [place] 7 Class/059637763(SN VIRUS VACCINES Clinic Main OMED CT) [place] Repository DRUG NAPROXEN OTHER: SEE C [place] 3 INGREDI/[id number]( SODIUM Clinic Main SNOMED CT) [place] Repository Miscellaneous OTHER [place] 8 Allergy/[id number]( Clinic Main SNOMED CT) [place] Repository Animal/[id number](S CATS [place] [address]) Clinic Main [place] Repository Drug SULFA INTOLERANCE [place] 5 Class/[id number](SN (SULFONAMIDE Clinic Main OMED CT) ANTIBIOTICS) [place] Repository ENCOUNTERS ENCOUNTERS ADMIT/DISCHARGE ACCOUNT ADMITTING ENCOUNTER LOCATION SOURCE NUMBER CLASS 09/21/2018/09/21/19 [id number] Ambulatory BMSBuilding:[place] [address] Repository 08/17/2018 [id number] Ambulatory [facility] ing:PAVLAB Repository 08/06/2018/08/07/20 [id number] Ambulatory [address] Repository 07/07/2018/07/07/20 [id number] Ambulatory BMSBuilding:[place] [address] Repository 06/18/2018/06/18/20 [id number] Ambulatory [address] Repository 03/20/2018/03/23/20 [id number] Ambulatory [address] Repository 02/27/2018/02/28/20 [id number] Ambulatory [address] Repository 01/06/2018/01/10/20 [id number] Ambulatory [address] Repository PAYERS PAYERS ENCOUNTER GUARANTOR PAYER SUBSCRIBER SOURCE 09/21/2018 LYNNE L Primary LYNNE L [place] [id number] Insurance:CARESOURCEP LUCASDOB: [facility] Number: [id number] [place], [place] [id number] Repository [address]Zxk: (330) Date:2018-08-04P O [phone] () [address]ATTN: [place] [address]BZ: 09/21/2018 Secondary NOT GIVENUNK [place] Insurance:SELF PAY [facility] Number: Effective Repository Date:2018-09-21 08/17/2018 LYNNE L Primary LYNNE L [place] [id number] [facility] Number: [id number] [place], [place] [id number] Repository [address]Rdy: ([phone]) Date:2018-08-17P O [phone] () [address]ATTN: [place] [address]BQ: 08/17/2018 Secondary NOT GIVENUNK [place] Insurance:SELF PAY [facility] Number: Effective Repository Date:2018-08-17 07/07/2018 LYNNE Johnson Primary LYNNE Johnson [facility] [id number] Insurance:CARESOURCEP LUCASDOB: [facility] Number: [id number] [place], [place] [id number] Repository [address]Wvn: [phone]) Date:2018-07-02P [phone] () [address]ATTN: [place] [address]ET: 07/07/2018 Secondary NOT GIVENUNK [place] Insurance:SELF PAY [facility] Number: Effective Repository Date:2018-07-07
== END ==
PROVIDERS: Family Provider Family Medicine; PCP Family Medicine; Referring Provider Obstetrics & Gynecology; Visit Provider Obstetrics & Gynecology
DX: N92.6 Irregular menstruation, unspecified (principal)
CPT/HCPCS: 36415; 84702

== ENCOUNTER → 2019-09-16 16:58 | Outpatient (CLI) | payer OTHER, SELFPAY ==
[2019-09-16 12:18] VITALS: BMI 20.7
[2019-09-16 19:35] LABS: Amphetamine Urine VISTA NEGATIVE (<1000 ng/mL); Barbiturate Urine VISTA NEGATIVE (< 200 ng/mL); Benzodiazepine Urine VISTA NEGATIVE (< 200 ng/mL); Cocaine Urine VISTA NEGATIVE (< 300 ng/mL); Ecstacy Urine VISTA NEGATIVE (< 500 ng/mL); Methadone Urine VISTA NEGATIVE (< 300 ng/mL); PCP Urine VISTA NEGATIVE (< 25 ng/mL); THC Urine VISTA NEGATIVE (< 50 ng/mL); Vista UDS pH Range 6
== END ==
PROVIDERS: Referring Provider Obstetrics & Gynecology; Visit Provider Obstetrics & Gynecology
DX: Z34.90 Encounter for supervision of normal pregnancy, unspecified, unspecified trimester (principal)
CPT/HCPCS: 80307; 87086; 87088

== ENCOUNTER → 2020-04-13 | Outpatient (CLI) | payer OTHER, SELFPAY ==
[2019-09-16 12:18] VITALS: BMI 20.7
== END | disposition home or self-care (01) ==
LOC: MTDU 10:26
PROVIDERS: Referring Provider Advanced Practice Midwife; Visit Provider Advanced Practice Midwife
DX: Z11.59 Encounter for screening for other viral diseases (principal)
CPT/HCPCS: 87635; 94799; U0003

== ENCOUNTER 2020-04-18 19:05 | Inpatient (IN) | payer OTHER, SELFPAY ==
[2019-09-16 12:18] VITALS: BMI 20.7
[2020-04-18 19:29] VITALS: BP 110/76
[2020-04-18 19:30] VITALS: PULSE 100; O2SAT 98
[2020-04-18 19:32] VITALS: TEMP 36.1
[2020-04-18] MEDS: Lactated Ringers 1,000 ML 50 ML IV (19:40)
[2020-04-18 19:56] LABS: Absolute Lymphocyte Count 1.65 X10^3/uL (0.83-4.51); Absolute Neutrophil Count 6.3 X10^3/uL (2.0-7.7); Basophil# 0.02 X10^3/uL; Basophil% 0.2 % (0-1); Eosinophil# 0.04 X10^3/uL; Eosinophils% 0.5 % (0-5); Hematocrit 32.6 % (37-47); Hemoglobin 11.1 g/dL (12.0-15.0); Lymphocyte # 1.65 X10^3/ul (4.0); Lymphocyte % 19.1 % (19-41); Mean Corpuscular Hgb 33.1 pg (27.0-32.0); Mean Corpuscular Volume 97.3 fL (81-99); Mean Platelet Vol. 10.9 fl (6.2-12.0); Monocyte# 0.53 X10^3/uL; Monocyte% 6.1 % (0-10); NRBC Flagged by Analyzer 0 % (0-5); Neutrophil # 6.34 X10^3/uL (2.7-7.7); Neutrophil % 73.5 % (47-70); Platelet Count 232 K/mm3 (150-450); RBC Distribution Width SD 45.7 fl (35.1-43.9); Red Blood Count 3.35 M/mm3 (4.2-5.4); White Blood Count 8.6 K/mm3 (4.4-11.0)
[2020-04-18 20:09] VITALS: BMI 26.8
[2020-04-18] MEDS: Oxytocin 30 units/NS 500 ml 30 UNITS/500 ML IV.SOLN IV (21:02)
[2020-04-18 21:05] VITALS: BP 103/67; PULSE 75; O2SAT 98
[2020-04-18 22:09] VITALS: BP 114/71; PULSE 75; TEMP 37.4
[2020-04-18] MEDS: Acetaminophen 325 MG Tablet PO (22:11)
[2020-04-18 23:09] VITALS: BP 111/70; PULSE 68
[2020-04-19] VITALS (50 sets, daily range): BP systolic 94–146; BP diastolic 56–73; PULSE 60–142; RESP 16–18; TEMP 36.6–37.4; O2SAT 97–100
[2020-04-19] MEDS: fentaNYL 100 MCG/2 ML Ampul IV (00:40)
[2020-04-19] MEDS: Lactated Ringers 500 ML 999 ML IV (03:44)
[2020-04-19] MEDS: fentaNYL-bupivacaine (epidural) 100 ML BAG EPIDURAL (04:44)
--- NOTE | 2020-04-19 05:36 | PCM.HP.OB ---
History Date of Admission: 04/18/20 Final ARMEN: 04/24/20 Final ARMEN Source: US <20 weeks Gestational age: 39 Weeks and 2 Days History of this : This is a 39 year-old, G3, P2 who presents for induction of labor due to advanced maternal age. She denies any vaginal bleeding or leaking of fluid. She is not had regular contractions. Her has been complicated to date by anemia. Relevant past medical history includes some anxiety, hypothyroidism, and history of genital herpes. Patient denies any symptoms or recent outbreaks. Medical History: Medical History (Last Updated 09/16/19 @ 12:[address] Clare Cruz MD) Hypothyroidism (Acute) E03.[address] Sepulveda, plan tsh and free t4 q trimester Anxiety F41.9 Genital HSV A60.00 Surgical History: Surgical History (Last Reviewed 09/21/18 @ 11:56 by Darline Iqbal) S/P tonsillectomy Z90.89 Allergies Sulfa (Sulfonamide Antibiotics) Allergy (Mild, Verified 09/16/19 11:22) unknown Influenza Virus Vaccines Adverse Reaction (Verified 04/18/20 20:06) Chest tightness naproxen [From Aleve] Adverse Reaction (Verified 04/18/20 20:05) NEEDS FOLLOW-UP Home Medications: Home Medications levothyroxine 100 mcg tablet 112 mcg PO DAILY 07/07/18 vitamin#30 30 mg iron-10 mg iron-folic acid 1 mg-omg3 capsule cap PO 09/16/19 Acyclovir 400 mg PO TID 04/18/20 Smoking Status: Former smoker Alcohol: None Number of Fetus(es): 1 History Past Pregnancies: Past Pregnancies Delivery Date Name GA/ Weeks Outcome Route Wt Infant Sex Labor Length Anesthesia Delivery Location Provider FOB Expected Infant Delivery Method: Spontaneous Vaginal Review of Systems Constitutional: Denies: Chills, Fever Eyes: Denies: Blurred vision Cardiovascular: Denies: Chest Pain Respiratory: Denies: Cough Genitourinary: Denies: Dysuria Skin: Denies: Rash Physical Exam Vitals: Vital Signs Temp Pulse BP Pulse Ox 99.3 F H 91 112/65 99 04/19/20 04:06 04/19/20 05:22 04/19/20 05:21 04/19/20 05:22 General: Alert, Cooperative, No apparent distress Cardiovascular: Regular rate Abdomen: Soft, Non Tender, Non-Distended, Gravid Extremities:: No edema Neurological: Neuro grossly intact. Negative for: Slurred Speech Assessment/Plan All Active Problems (Last Updated 09/16/19 @ 12:[address] Clare Cruz MD) Anxiety during (Acute) AMA (advanced maternal age) multigravida 35+ (Acute) Supervision of high risk , antepartum (Acute) (Acute) Hypothyroidism (Acute) This is a 39 year-old, 3 para 2 admitted at 39+ gestational weeks for induction of labor due to advanced maternal age. Risk benefits and alternatives to Pitocin induction were discussed with patient, her questions were answered to her satisfaction she desires to proceed. Estimated weight is less than 4500 g and pelvis clinically adequate to expect vaginal delivery. She may have epidural as needed for pain control. Group B strep prophylaxis is initiated. Patient has no current signs or symptoms of herpes genitalis.
[2020-04-19] MEDS: Oxytocin 30 units/NS 500 ml 30 UNITS/500 ML IV.SOLN 334 UNITS IV (07:36)
--- NOTE | 2020-04-19 07:46 | PCM.OPRPT ---
Vaginal Delivery Maternal Presentation: Medically Indicated Induction Method of Induction: Pitocin, Amniotomy Medical Reason for Induction: - - And maternal age Amniotic Membrane Rupture Type: Artificial Amniotic Fluid Description: Clear Final ARMEN: 04/24/20 Final ARMEN Source: US <20 weeks Gestational age: 39 Weeks and 2 Days Date of Procedure: 04/19/20 Pre-Operative Diagnosis: labor Post-Operative Diagnosis: same Surgery/ Procedure Performed: Spontaneous Vaginal Delivery Type of Anesthesia: None Description of Procedure: A vigorous female was delivered ROSI over intact perineum. Nuchal cord x2 was easily reduced. The remainder the infant was delivered with maternal pushing and gentle traction only in less than 15 seconds. The Pitocin infusion was initiated for active management of the third stage. The cord was clamped and cut after 1 minute. The infant was attended to by the waiting nursing staff. The placenta was delivered spontaneously and intact. The cervix and vagina were intact. The small first-degree vaginal laceration was pared with a single 3-0 Vicryl repeat [id number] suture and was hemostatic. Sponge and needle counts were correct. A vaginal sweep was completed by me. Presentation: ROSI Placental Delivery Description: Spontaneous Placenta Disposition: [facility] Cord Vessel Description: 3 Vessels Nuchal Cord Compression: Without compression Cord Entanglement: Around neck x 2, loose Drain: Man to straight drain Estimated Blood Loss: 200 Infant A gender: Female Episiotomy Description: None Laceration: 1st degree - Vaginal Medications given after delivery: IV Pitocin Complications: None
[2020-04-19] MEDS: Acetaminophen 500 MG Tablet 1000 MG PO (18:07)
[2020-04-20 00:50] VITALS: BP 111/59; PULSE 78; RESP 16; TEMP 36.6
[2020-04-20 04:22] VITALS: BP 101/66; PULSE 56; RESP 14; TEMP 36.2
[2020-04-20 04:23] VITALS: BP 101/66; PULSE 56
[2020-04-20] MEDS: Levothyroxine 112 MCG Tablet PO (06:16)
--- NOTE | 2020-04-20 07:05 | PCM.PN.OB ---
Subjective: Patient seen at bedside. Doing well. Pain is controlled. going good. Ambulating and voiding without difficulty. Desires discharge home today. - Physical Exam Vitals/I&O's: Vital Signs Temp Pulse Resp BP Pulse Ox 97.2 F L 56 L 14 101/66 97 04/20/20 04:22 04/20/20 04:23 04/20/20 04:22 04/20/20 04:23 04/19/20 21:40 Oxygen Delivery Method Room Air Weight: 174 lb Body Mass Index (BMI) 26.8 Intake and Output for Last 24 Hours 04/18/20 04/19/20 04/20/20 23:59 23:59 23:59 Intake Total 119.06 / 119.06 2578.74 / 2578.74 Output Total 200 / 200 1000 / 1000 Balance -80.94 / -80.94 1578.74 / 1578.74 General: Alert, Oriented x3 Oral: Moist Mucosa Lungs: Normal air movement Cardiovascular: Regular rate Abdomen: Soft, Non Tender, Non-Distended Skin: No rashes Musculoskeletal: No Tenderness to Palpation of Joints or Extremities Neurological: Cranial nerves II-XII grossly intact Psych/Mental Status: Normal Affect Current Medications Acetaminophen (Tylenol) 1,000 mg PO Q8H PRN PRN PRN Reason: Pain Score 1-10/10 Last Admin: 04/19/20 18:07 Dose: 1,000 mg Documented by: Bisacodyl (Dulcolax) 10 mg RECTAL UD PRN PRN Reason: If no BM Dibucaine (Dibucaine) 1 applic TOPICAL TID PRN PRN; Protocol PRN Reason: Discomfort Hydrocortisone (Hytone) 1 applic TOPICAL TID PRN PRN; Protocol PRN Reason: Discomfort Levothyroxine Sodium (Synthroid) 112 mcg PO DAILY@0600 DIALLO Last Admin: 04/20/20 06:16 Dose: 112 mcg Documented by: Methylergonovine Maleate (Methergine) 0.2 mg IM X1 PRN PRN Reason: Excess bleeding/uterine atony Ondansetron HCl (Zofran) 4 mg IV Q4H PRN PRN PRN Reason: Nausea Senna/Docusate Sodium (Senokot-S, Doreen-Colace) 1 - 2 tablet PO DAILY PRN PRN PRN Reason: Constipation Simethicone (Mylicon) 80 mg PO PCHS PRN PRN Reason: Indigestion/Stomach pain Sodium Chloride () 5 - 15 ml IV UD PRN PRN Reason: SALINE FLUSH Medical Necessity - Tobacco Use Smoking Status: Former smoker Assessment/Plan All Active Problems (Last Updated 09/16/19 @ 12:[address] Clare Cruz MD) Anxiety during (Acute) AMA (advanced maternal age) multigravida 35+ (Acute) Supervision of high risk , antepartum (Acute) (Acute) Hypothyroidism (Acute) A/P PPD #1 Routine care Pain management Discharge home
--- NOTE | 2020-04-20 07:09 | DCINST_ITS ---
Discharge Diet: No Restrictions Additional Instructions: If you experience any of the following, contact your healthcare provider. * Bleeding that soaks a pad every hour for 2 hours * Fever 100.4 or higher * Unrelieved incision or abdominal pain * Swelling, redness, discharge or bleeding from your incision or episi otomy site * Your incision begins to separate * Problems urinating (including inability to urinate or burning while urinating). * Visual changes * Severe headache * Flu-like symptoms * Pain or redness in one of both of your breasts * Pain, warmth, tenderness or swelling in your legs, especially the calf area * Frequent nausea and vomiting * Symptoms of depression or anxiety If you experience any of the following, call 911 or go to the nearest Emergency Room. * Chest pain * Problems breathing * Seizure activity * Partial or complete paralysis of a body part, slurred speech, weakness or drooping of the face, or a sudden inability to walk or hold your balance Allergies/Adverse Reactions: Allergies Sulfa (Sulfonamide Antibiotics) Allergy (Mild, Verified 09/16/19 11:22) unknown Influenza Virus Vaccines Adverse Reaction (Verified 04/18/20 20:06) Chest tightness naproxen [From Aleve] Adverse Reaction (Verified 04/18/20 20:05) NEEDS FOLLOW-UP Medications to take at Discharge levothyroxine 100 mcg tablet 112 mcg PO DAILY 07/07/18 vitamin#30 30 mg iron-10 mg iron-folic acid 1 mg-omg3 capsule cap PO 09/16/19 Please Follow Up With: Dejah Oroczo MD When: 2 weeks virtual and 6 weeks in office Primary Care Physician: Sander Sepulveda [Primary Care Provider] - Test Results: Test results from this visit will be discussed in further detail at your follow- up appointment, if applicable.
--- NOTE | 2020-04-20 07:09 | PCM.DCVAG ---
Discharge Diet: No Restrictions Additional Instructions: If you experience any of the following, contact your healthcare provider. Bleeding that soaks a pad every hour for 2 hours Fever 100.4 or higher Unrelieved incision or abdominal pain Swelling, redness, discharge or bleeding from your incision or episiotomy site Your incision begins to separate Problems urinating (including inability to urinate or burning while urinating). Visual changes Severe headache Flu-like symptoms Pain or redness in one of both of your breasts Pain, warmth, tenderness or swelling in your legs, especially the calf area Frequent nausea and vomiting Symptoms of depression or anxiety If you experience any of the following, call 911 or go to the nearest Emergency Room. Chest pain Problems breathing Seizure activity Partial or complete paralysis of a body part, slurred speech, weakness or drooping of the face, or a sudden inability to walk or hold your balance Allergies/Adverse Reactions: Allergies Sulfa (Sulfonamide Antibiotics) Allergy (Mild, Verified 09/16/19 11:22) unknown Influenza Virus Vaccines Adverse Reaction (Verified 04/18/20 20:06) Chest tightness naproxen [From Aleve] Adverse Reaction (Verified 04/18/20 20:05) NEEDS FOLLOW-UP Medications to take at Discharge levothyroxine 100 mcg tablet 112 mcg PO DAILY 07/07/18 vitamin#30 30 mg iron-10 mg iron-folic acid 1 mg-omg3 capsule cap PO 09/16/19 Please Follow Up With: Dejah Orozco MD When: 2 weeks virtual and 6 weeks in office Primary Care Physician: Sander Sepulveda [Primary Care Provider] - Test Results: Test results from this visit will be discussed in further detail at your follow-up appointment, if applicable.
[2020-04-20 10:00] VITALS: BP 98/66; PULSE 82; RESP 18; TEMP 36.7
[2020-04-20 10:07] VITALS: BP 98/66; PULSE 82
--- NOTE | 2020-04-24 14:39 | NURSING ---
Doing Well , milk coming in,
== END 2020-04-20 13:00 | disposition home or self-care (01) | DRG 806 ==
PROVIDERS: Admitting Provider Obstetrics & Gynecology; Visit Provider Obstetrics & Gynecology
DX: O69.81X0 Labor and delivery complicated by cord around neck, without compression, not applicable or unspecified (principal); O71.4 Obstetric high vaginal laceration alone; Z37.0 Single live birth; O99.02 Anemia complicating childbirth; D64.9 Anemia, unspecified; O99.284 Endocrine, nutritional and metabolic diseases complicating childbirth; E03.9 Hypothyroidism, unspecified; Z3A.39 39 weeks gestation of pregnancy
CPT/HCPCS: 59025; 59050; 85025; 86850; 86900; 86901; 99218; J7120; G0378

== ENCOUNTER 2021-07-20 16:33 | Emergency (ER) | payer OTHER, SELFPAY ==
[2021-07-20 16:34] VITALS: BP 132/119; PULSE 81; RESP 16; TEMP 36.3; O2SAT 100; BMI 23.1
[2021-07-20 17:36] LABS: Absolute Lymphocyte Count 1.17 X10^3/uL (0.83-4.51); Absolute Neutrophil Count 5.8 X10^3/uL (2.0-7.7); Basophil# 0.03 X10^3/uL; Basophil% 0.4 % (0-1); Hematocrit 36.4 % (37-47); Hemoglobin 12.2 g/dL (12.0-15.0); Lymphocyte # 1.17 X10^3/ul (0.83-4.51); Lymphocyte % 15.9 % (19-41); Mean Corp Hgb Conc 33.5 g/dL (32-36); Mean Corpuscular Volume 95.5 fL (81-99); Mean Platelet Vol. 10.1 fl (6.2-12.0); Monocyte# 0.35 X10^3/uL; Monocyte% 4.8 % (0-10); NRBC Flagged by Analyzer 0 % (0-5); Neutrophil # 5.77 X10^3/uL (2.7-7.7); Neutrophil % 78.6 % (47-70); Platelet Count 258 K/mm3 (150-450); RBC Distribution Width CV 12.4 % (11.6-14.6); RBC Distribution Width SD 43.5 fl (35.1-43.9); Red Blood Count 3.81 M/mm3 (4.2-5.4); White Blood Count 7.3 K/mm3 (4.4-11.0)
[2021-07-20 17:43] LABS: Bacteria 0 SEEN /hpf (None Seen); Glucose, Dipstick Normal (Normal); Ketone-Dipstick 50 mg/dl (Negative); Leukocyte Esterase-Dipstick Negative /ul (Negative); Mucous, Urine 0 SEEN /hpf (<or=2+); Nitrite-Dipstick Negative (Negative); Occult Blood-Urine 10 /ul (Negative); Protein-Dipstick Negative (Negative); Specific Gravity, Urine 1.015 (1.002-1.030); Urine Bilirubin Dipstick Negative (Negative); Urine Urobilinogen Normal (Normal); White Blood Cells 0 SEEN /hpf (0-5)
[2021-07-20 17:53] LABS: Internal QC Validated? YES +Cl - CLEAR BKGD; Pregnancy, Serum, hCG Quali. NEGATIVE Negative
[2021-07-20 17:55] LABS: Anion Gap 7 (5-15); BUN 13 mg/dL (7-18); BUN/Creat Ratio 16.4 RATIO (10-20); Calcium,Total 9.1 mg/dL (8.5-10.1); Chloride 108 mmol/L (98-107); Creatinine, Serum 0.79 mg/dL (0.55-1.02); EST Glomerular Filtration Rate 86 mL/min (>60); Est Glom Filt Rate - Afr Amer 104 mL/min (>60); Estimated Creatinine Clearance 93.89 ml/min; Glucose 96 mg/dL (74-106); Potassium 3.4 mmol/L (3.5-5.1); Sodium Level 139 mmol/L (136-145)
[2021-07-20 18:11] LABS: Color, Urine Yellow (Yellow); Urine Clarity Clear (Clear)
[2021-07-20 18:14] LABS: Red Blood Cells-Urine 0-5 SEEN /hpf (0-5); Squamous Epithelial Cells - UA 0-5 SEEN /hpf (5-10)
--- NOTE | 2021-07-20 18:41 | EDS_ITS ---
HPI HPI - GI History of Present Illness Chief Complaint: Abd Pain Detail of Chief Complaint: Right-sided abdominal pain with onset Friday night Informant: patient Abdominal Pain/Flank Pain Onset: Days Context: Sudden Onset Timing: Continuous and Waxes and wanes Quality: - (Describes a fullness with rare occasional prickly sensation) Location: - ([place] to [place]) Current Severity: Mild Maximum Severity: Moderate Worsened by: Nothing Relieved by: Nothing Nausea/Vomiting/Emesis GI Symptom: Negative for Nausea and Vomiting Diarrhea/Melena/Hematochezia GI Symptom: Negative for Diarrhea, Melena and Hematochezia Associated Symptoms Associated Symptoms: Negative for Dysuria, Frequency, Hematuria and Urgency LMP: Ended 1 week ago Narrative Narrative: Patient is a 40-year-old woman who presents with right-sided abdominal pain. There is no history of Crohn's disease or ulcerative colitis. There is no history of intolerance to greasy or fried foods. She denies history of irritable bowel syndrome. She denies dysuria, frequency, urgency or hematuria. She denies radiation of the pain. There is no history of trauma. She is not noted a skin lesion. She denies anorexia. She has no upper respiratory symptoms. Onset of discomfort Friday evening. The prickly sensation resolved yesterday. She had prickly sensation again today. She was sent to the emergency department by her PCP. Prior similar symptoms: No Recent Illness/Hospitalization: No PFSH PFSH Medical History Anxiety Genital HSV Hypothyroidism Home Medications levothyroxine 100 mcg tablet 112 mcg PO DAILY 07/07/18 [History Last Taken Unknown] vitamin#30 30 mg iron-10 mg iron-folic acid 1 mg-omg3 capsule cap PO 09/16/19 [History Last Taken 04/18/20] Allergy/AdvReac Type Severity Reaction Status Date / Time Sulfa (Sulfonamide Allergy Mild unknown Verified 07/20/21 16:36 Antibiotics) Influenza Virus Vaccines AdvReac Chest Verified 07/20/21 16:36 tightness naproxen [From Aleve] AdvReac NEEDS Verified 07/20/21 16:36 FOLLOW-UP Family History Mother Mary's disease Father Thyroid disorder Surgical History S/P tonsillectomy Social History (Updated 07/20/21 @ 18:[address] Kalyan Tesfaye MD) household members: spouse and children Smoking Status: Former smoker alcohol intake: never substance use type: does not use caffeine: Yes what type of physical activity do you participate in: none seatbelt use: always do you feel safe at home: Yes additional social history: [employer] (formerly [employer]) Patient stays at home ROS ROS ED Constitutional Constitutional ED: Denies chills, fever(s), subjective or sweats ENT ENT ED: Denies ear pain, rhinorrhea or sore throat Cardiovascular Cardiovascular: Denies chest pain, orthopnea, palpitations, paroxysmal nocturnal dyspnea or racing heartbeat Respiratory/Chest Respiratory/Chest: Denies cough, dyspnea, dyspnea on exertion, orthopnea, paroxysmal nocturnal dyspnea or sputum Gastrointestinal Gastrointestinal: Reports abdominal pain; Denies diarrhea, nausea or vomiting Genitourinary Genitourinary ED: Denies dysuria, hematuria or urinary frequency Musculoskeletal Musculoskeletal: Denies arthralgias, back pain or myalgias Integumentary Denies rash Neurologic Neurologic: Denies paresthesias or weakness EXAM Physical Exam Const Vital Signs: 07/20/21 16:34 Temperature 97.4 F L Temperature Source Temporal Pulse Rate 81 Respiratory Rate 16 Blood Pressure 132/119 H Blood Pressure Mean 123 Pulse Ox 100 Oxygen Delivery Method Room Air Positive well nourished and well developed General Appearance ED: well developed and NAD HEENT Reports moist mucous membranes normocephalic and atraumatic Eyes PERRL and EOMs intact bilaterally General Eye ED: Negative for pale conjunctiva or scleral icterus Neck no lymphadenopathy, supple and no JVD Resp normal respiratory effort and clear to auscultation bilaterally Cardio regular rate, regular rhythm, S1 normal heart sound, S2 normal heart sound and no murmurs GI non-tender, non-distended and no masses GI Narrative: Negative clinical Peterson sign. Inspection: other Auscultation: normoactive bowel sounds Palpation: soft; Negative for hepatomegaly or splenomegaly Back/Spine no CVA tenderness Lumbar Spine / Lower Back: Negative for lumbar spinal tenderness Extremity full ROM General Extremety ED: Negative for edema General Extremity: Negative for edema Neuro CN's II-XII intact bilaterally Sensorium / Orientation: alert, oriented to person, oriented to place and oriented to time Psych mental status grossly normal and thought process normal Skin no wounds General Skin Exam: Negative for jaundice Lesions: no lesions Rashes: no rashes MDM MDM MDM Narrative Medical decision making narrative: Patient presents with atypical continuous right lower quad abdominal pain. Will obtain urine to rule out urinary tract infection, process was ordered per protocol and negative. CBC to evaluate for i nflammation and atypical presentations appendicitis. 1 would expect with 96 hours of pain that her appendix would have ruptured and she would have peritoneal findings. Her abdominal exam is totally benign. Her work-up is totally benign. Lab Data Attestation: I reviewed the patient's lab results. Labs: Laboratory Results - last 24 hr 07/20/21 07/20/21 07/20/21 17:25 17:25 17:25 WBC 7.3 RBC 3.81 L Hgb 12.2 Hct 36.4 L MCV 95.5 MCH 32.0 MCHC 33.5 RDW Std Deviation 43.5 RDW Coeff of [place]mil[place] 12.4 Plt Count 258 MPV 10.1 Immature Gran % (Auto) 0.300 Neut % (Auto) 78.6 H Lymph % (Auto) 15.9 L [place] % (Auto) 4.8 Eos % (Auto) 0.0 Baso % (Auto) 0.4 Absolute Neuts (auto) 5.8 Absolute Lymphs (auto) 1.17 Nucleated RBC % 0 Sodium 139 Potassium 3.4 L Chloride 108 H Carbon Dioxide 24.0 Anion Gap 7 BUN 13 Creatinine 0.79 Estim Creat Clear Calc 93.89 Est GFR (MDRD) Af Amer 104 Est GFR (MDRD) Non-Af 86 BUN/Creatinine Ratio 16.4 Glucose 96 Calcium 9.1 Serum , Qual NEGATIVE Urine Color Urine Clarity Urine pH Ur Specific [place] Urine Protein Urine Glucose (UA) Urine Ketones Urine Occult Blood Urine Nitrite Urine Bilirubin Urine Urobilinogen Ur Leukocyte Esterase Urine RBC Urine WBC Ur Squamous Epith Cells Urine Bacteria Urine Mucus 07/20/21 Unknown WBC RBC Hgb Hct MCV MCH MCHC RDW Std Deviation RDW Coeff of [place] Plt Count MPV Immature Gran % (Auto) Neut % (Auto) Lymph % (Auto) [place] % (Auto) Eos % (Auto) Baso % (Auto) Absolute Neuts (auto) Absolute Lymphs (auto) Nucleated RBC % Sodium Potassium Chloride Carbon Dioxide Anion Gap BUN Creatinine Estim Creat Clear Calc Est GFR (MDRD) Af Amer Est GFR (MDRD) Non-Af BUN/Creatinine Ratio Glucose Calcium Serum , Qual Urine Color Yellow Urine Clarity Clear Urine pH 7.0 Ur Specific [place] 1.015 Urine Protein Negative Urine Glucose (UA) Normal Urine Ketones 50 H Urine Occult Blood 10 H Urine Nitrite Negative Urine Bilirubin Negative Urine Urobilinogen Normal Ur Leukocyte Esterase Negative Urine RBC 0-5 SEEN Urine WBC 0 SEEN Ur Squamous Epith Cells 0-5 SEEN Urine Bacteria 0 SEEN Urine Mucus 0 SEEN Discharge Plan Triage Chief Complaint: Abd Pain ED Provider: Kalyan Tesfaye Dx/Rx/DC Orders Clinical Impression: Right lower quadrant abdominal pain of unknown etiology Instructions: ED Abdominal Pain Unkn Cause Fem Prescriptions: No Action levothyroxine [Synthroid] 100 mcg tablet 112 mcg PO DAILY RF: 0 vitamin#30 30 mg iron-10 mg iron-folic acid 1 mg-omg3 capsule 30 mg iron-10 mg iron-1 mg capsule PO RF: 0 Primary Care Provider: Sander Sepulveda Referrals: Sander Sepulveda [Primary Care Provider] - As Needed Disposition Disposition: Home, Self Care
[2021-07-20 18:53] VITALS: BP 116/76; RESP 16
[2021-07-20 18:54] VITALS: RESP 16
== END 2021-07-20 18:54 | disposition home or self-care (01) ==
PROVIDERS: Emergency Provider Emergency Medicine
DX: R10.31 Right lower quadrant pain (principal); E03.9 Hypothyroidism, unspecified; Z79.899 Other long term (current) drug therapy; Z87.891 Personal history of nicotine dependence
CPT/HCPCS: 80048; 81001; 84703; 85025; 99283; A4216